=== PATIENT | female | born 1965 | race Caucasian/White ===

== ENCOUNTER → 2019-07-15 16:22 | Outpatient (CLI) | payer OTHER, SELFPAY ==
--- NOTE | ~2019-07-15 | MM_ITS ---
EXAMINATION: MM screening george BI w alhaji HISTORY: Screening mammogram TECHNIQUE: Craniocaudal and mediolateral oblique 3-D tomosynthesis images were obtained and synthetic 2-D images were generated. CAD analysis was submitted and interpreted. COMPARISON: 07/01/2018, 06/29/2017, 06/23/2016 and lateral digital screening mammogram examinations BREAST PARENCHYMAL COMPOSITION: There are scattered areas of fibroglandular density. FINDINGS: There is no evidence of suspicious mass, calcification, or architectural distortion to sugg est malignancy in either breast. There has been no suspicious interval change. IMPRESSION: 1. No mammographic evidence of malignancy. 2. Recommend routine screening mammography in one year. BI-RADS Category 1: Negative Reviewed, dictated and finalized at location A. TOLOGIC TECHNICIAN
== END ==
PROVIDERS: PCP Internal Medicine; Visit Provider Nurse Practitioner
DX: Z12.31 Encounter for screening mammogram for malignant neoplasm of breast (principal)
CPT/HCPCS: 77063; 77067

== ENCOUNTER 2020-02-29 17:14 | Outpatient (CLI) | payer OTHER, SELFPAY ==
--- NOTE | ~2020-02-29 | XR_ITS ---
EXAMINATION: XR cervical spine 4-5V EXAM DATE: 02/29/2020 17:39 INDICATION: Right-sided neck and arm pain, radiculopathy. TECHNIQUE: Cervical spine frontal, lateral, lateral swimmers, and open-mouth odontoid projections. C omparison is made to prior examination from 03/08/2008. FINDINGS: There is no evidence of acute cervical fracture. The odontoid process is intact. Pre-dens space is normal. Prevertebral soft tissue is normal. There are no soft tissue abnormalities identi fied. There is moderate disc disease at C5-6, mild disc disease at the levels above this. The verteb ral bodies are aligned in the AP dimension. Mild to moderate cervical facet and uncovertebral joint a rthropathy. IMPRESSION: 1. Mild to moderate cervical spondylosis. Reviewed, dictated and finalized at location A.
== END 2020-02-29 17:15 | disposition home or self-care (01) ==
PROVIDERS: PCP Internal Medicine; Visit Provider Physician Assistant
DX: M47.22 Other spondylosis with radiculopathy, cervical region (principal)
CPT/HCPCS: 72050

== ENCOUNTER → 2020-08-16 17:48 | Outpatient (CLI) | payer OTHER, SELFPAY ==
--- NOTE | ~2020-08-16 | MM_ITS ---
EXAMINATION: MM screening george BI w alhaji HISTORY: Screening TECHNIQUE: Craniocaudal and mediolateral oblique 3-D tomosynthesis images were obtained and synthetic 2-D images were generated. CAD analysis was submitted and interpreted. COMPARISON: Comparison to multiple prior studies sequentially, with oldest reviewed study dated 06/15. BREAST PARENCHYMAL COMPOSITION: There are scattered areas of fibroglandular density. FINDINGS: There is no evidence of suspicious mass, calcification, or architectural distortion to sugg est malignancy in either breast. There has been no suspicious interval change. IMPRESSION: 1. No mammographic evidence of malignancy. 2. Recommend routine screening mammography in one year. BI-RADS Category 1: Negative Reviewed, dictated and finalized at location A.
--- NOTE | ~2020-08-16 | DEXA_ITS ---
Bone Density Report Name: Dian Tello Age: 54 Sex: Female Ethnicity: White Date of : 1965 Indication: postmenopausal; screening for osteoporosis; height loss; asthma or emphysema; hysterectomy; Referring Provider: Elaine, Tata Study: Bone densitometry was performed. Exam Date: August 16, 2020 Accession number: [id number] Bone Density: Region BMD T-score Z-score Classification AP Spine (L1-L4) 1.267 2.0 3.2 Normal Femoral Neck (Left) 0.858 0.1 1.2 Normal Total Hip (Left) 1.060 1.0 1.7 Normal Femoral Neck (Right) 0.836 -0.1 1.0 Normal Total Hip (Right) 0.993 0.4 1.2 Normal Total Hip Mean 1.027 0.7 1.5 Normal World Health Organization criteria for BMD impression classify patients as: Normal (T-score at or above -1.0), Osteopenia (T-score between -1.0 and -2.5), or Osteoporosis (T-score at or below -2.5). 10-year Fracture Risk: FRAX not reported because: All T-scores for Spine Total, Hip Total, Femoral Neck at or above -1.0 Previous Exams: Region Exam Age BMD T-score BMD Change BMD Change Date g/cm2 vs Baseline vs Previous AP Spine(L1-L4) 08/16/2020 54 1.267 2.0 0.076 0.019 06/23/2016 50 1.248 1.8 0.057 0.043* 05/19/2012 46 1.205 1.4 0.014 0.014 03/31/2007 41 1.191 1.3 Total Hip(Left) 08/16/2020 54 1.060 1.0 0.067 0.038* 06/23/2016 50 1.022 0.7 0.029 -0.078* 05/19/2012 46 1.100 1.3 0.106 0.106 03/31/2007 41 0.993 0.4 Total Hip(Right) 08/16/2020 54 0.993 0.4 0.029 -0.032* 06/23/2016 50 1.025 0.7 0.061 -0.060* 05/19/2012 46 1.085 1.2 0.121 0.121 03/31/2007 41 0.965 0.2 *Denotes significance at 95% confidence level, LSC for AP Spine = 0.022 g/cm2, LSC for Total Hip = 0.027 g/cm2 Clinical Information Provided by Patient: Has used the following medications: Vitamin D, Calcium Has the following medical conditions: Asthma or Emphysema, Hysterectomy Patient maximum height was 64 Menopause Age: 28 Drinks caffeinated beverages Onset of menses at age 12 Number of children 2 Impression: The patient has normal bone mass. The BMD for the Total Hip(Right) decreased, changing by -0.032 since the last DXA exam. Discussion: BONE DENSITY IS ABOVE THE MINIMUM DESIRABLE LEVEL AT ALL SKELETAL SIT
== END ==
PROVIDERS: PCP Internal Medicine; Visit Provider Nurse Practitioner
DX: Z12.31 Encounter for screening mammogram for malignant neoplasm of breast (principal); Z13.820 Encounter for screening for osteoporosis; Z78.0 Asymptomatic menopausal state
CPT/HCPCS: 77063; 77067; 77080

== ENCOUNTER → 2020-09-23 00:31 | Outpatient (CLI) | payer OTHER, SELFPAY ==
[2020-09-23 21:02] LABS: SARS-CoV-2 RNA PCR Negative
== END ==
PROVIDERS: PCP Internal Medicine; Visit Provider Internal Medicine Gastroenterology
DX: Z01.812 Encounter for preprocedural laboratory examination (principal); Z20.822 Contact with and (suspected) exposure to COVID-19
CPT/HCPCS: C9803; U0003; U0005

== ENCOUNTER 2020-09-26 02:19 | Day surgery (SDC) | payer OTHER, SELFPAY ==
[2020-09-14 14:02] VITALS: BMI 36.6
[2020-09-26 07:33] VITALS: BP 142/92; PULSE 87; RESP 16; TEMP 36.4; O2SAT 100; BMI 39.7
[2020-09-26] MEDS: LACTATED RINGERS 1,000 ML 150 ML IV CONT (07:42)
--- NOTE | 2020-09-26 08:00 | WPDANESEPPF ---
Anes - Initial Pre Proc Eval Procedure: Operation Date: 09/26/20 08:30 Proposed Procedures p Screening Colonoscopy - North Rodriguez MD Date/Time: 09/26/20 08:00 Surgeon: North Rodriguez MD Pre Op Diagnosis: Neoplasm Screening Patient Data Age: 54 Gender: F Height: 5 ft 2 in Weight: 98.6 kg Last Vital Signs Temp 97.6 F 09/26/20 07:33 Pulse 87 09/26/20 07:33 Resp 16 09/26/20 07:33 BP 142/92 H 09/26/20 07:33 Pulse Ox 100 09/26/20 07:33 Allergies Allergy/AdvReac Type Severity Reaction Status Date / Time meperidine [From Demerol] Allergy Unknown unknown Verified 09/26/20 07:32 Home Medications Medication Instructions Recorded Confirmed Type ascorbic acid (vitamin C) 500 mg 500 mg PO DAILY 06/29/19 09/26/20 History capsule calcium carbonate 600 mg calcium 1,200 mg PO DAILY 06/29/19 09/14/20 History (1,500 mg) tablet cholecalciferol (vitamin D3) 25 1,000 unit PO DAILY 06/29/19 09/26/20 History mcg (1,000 unit) chewable tablet cinnamon bark 500 mg capsule 500 mg PO DAILY 06/29/19 09/26/20 History estradiol 1 mg tablet 1 mg PO DAILY 06/29/19 09/26/20 History loratadine 10 mg tablet 10 mg PO DAILY 06/29/19 09/26/20 History buspirone 15 mg tablet 15 mg PO BID PRN #60 tablet 09/24/19 09/26/20 Rx tramadol 50 mg tablet 50 mg PO BID PRN #7 tablet 03/02/20 09/26/20 Rx sodium,potassium,mag sulfates 17.5 See Rx Instructions PO .COMPLEX 07/27/20 09/26/20 Rx gram-3.13 gram-1.6 gram oral soln #354 ml fluticasone propionate 50 2 spray NASAL DAILY PRN #15.8 ml 08/11/20 09/26/20 Rx mcg/actuation nasal spray,suspension azelastine 2 spray NASAL DAILY 09/14/20 09/26/20 History omeprazole See Rx Instructions .ROUTE .COMPLEX 09/14/20 09/26/20 History albuterol sulfate 90 mcg/actuation 2 inh INHALATION Q4-6H PRN #18 gm 09/18/20 09/26/20 Rx aerosol inhaler alprazolam 0.5 mg tablet See Rx Instructions PO DIRECTED 09/23/20 09/26/20 Rx #30 tablet Patient hx anesthesia problems: none Family hx anesthesia problems: none PMFSH Past Medical History Medical History (Updated 08/01/20 @ 16:12 by Fady Narayanan MD) Anxiety disorder, unspecified Arthritis of right knee Essential (primary) hypertension Hyperglycemia Osteoarthritis of left knee Plantar fasciitis of left foot Pure hypercholesterolemia Right knee pain Vitamin D deficiency, unspecified Surgical History Surgical History History of cholecystectomy History of hysterectomy History of lumpectomy History of tonsillectomy Family History Family History Father Hypertension Mother Hypertension Family history of diabetes mellitus in first degree relative Sibling Hypertension Family history of malignant neoplasm of breast in first degree relative Patient's brother is Social History Social History Smoking packs per day: 0.25 Smoking cigarettes per day: 5.0 Years smoked: 2 Smoking pack-years: 0.50 Smoking status: Former smoker Tobacco type: cigarettes Second hand tobacco smoke exposure: No Smoking end date: 06/03/94 Alcohol intake: current Living arrangements: alone Gender identity (if verbalized by the patient): Female Spiritual care concerns: No Anes - Eval Final PreProcedure Day of Procedure 09/26/20 08:00 Patient weight: morbidly obese Heart: regular rate and rhythm Lungs: clear to auscultation Airway: Mallampati scale class II Neurological: alert and oriented Last oral intake: >/= 8 hours ASA classification: III Emergent: no Anesthetic plan: proceed Anesthesia type and monitoring: general GIVS and standard monitoring Informed Consent: The patient's anesthetic plan and its attendant risks and benefits were discussed with the patient/family/POA. Questions were solicit
--- NOTE | 2020-09-26 08:28 | PM.HPGS ---
History of Present Illness History of Present Illness Consent: Risks, benefits, and alternatives have been discussed and questions answered. Patient agrees to proceed with procedure. Chief complaint: Neoplasm Screening Narrative: Dian Tello is a 54 year old female here for first screening colonoscopy Review of Systems Constitutional: Constitutional: Denies headache(s) and Denies weakness Eyes: Eyes: Denies blurry vision ENT: Reports Normal hearing present, Denies headache(s) and Denies neck pain Cardiovascular: Cardiovascular: Denies chest pain and Denies dyspnea Respiratory: Respiratory: Denies dyspnea Gastrointestinal: Gastrointestinal: Reports no additional gastrointestinal complaints Genitourinary: Genitourinary: Denies dysuria Musculoskeletal: Musculoskeletal: Denies neck pain Integumentary/Breasts: Skin/Breast: Denies dry skin Neurologic: Reports Normal hearing present, Denies headache(s) and Denies weakness Psychiatric: Psychiatric: Denies anxiety Endocrine: Endocrine: Denies change in body appearance Hematologic/Lymphatic: Hematologic/Lymphatic: Denies easy bleeding Allergic/Immunologic: Allergic/Immunologic: Denies urticaria PMFSH Past Medical History Medical History (Updated 09/26/20 @ 08:29 by North Rodriguez MD) Anxiety disorder, unspecified Arthritis of right knee Colon cancer screening Essential (primary) hypertension Hyperglycemia Osteoarthritis of left knee Plantar fasciitis of left foot Pure hypercholesterolemia Right knee pain Vitamin D deficiency, unspecified Surgical History Surgical History History of cholecystectomy History of hysterectomy History of lumpectomy History of tonsillectomy Family History Family History Father Hypertension Mother Hypertension Family history of diabetes mellitus in first degree relative Sibling Hypertension Family history of malignant neoplasm of breast in first degree relative Patient's brother is Social History Social History Smoking packs per day: 0.25 Smoking cigarettes per day: 5.0 Years smoked: 2 Smoking pack-years: 0.50 Smoking status: Former smoker Tobacco type: cigarettes Second hand tobacco smoke exposure: No Smoking end date: 06/03/94 Alcohol intake: current Living arrangements: alone Gender identity (if verbalized by the patient): Female Spiritual care concerns: No Meds Home Medications and Allergies Home Medications Medication Instructions Recorded Confirmed Type ascorbic acid (vitamin C) 500 mg 500 mg PO DAILY 06/29/19 09/26/20 History capsule calcium carbonate 600 mg calcium 1,200 mg PO DAILY 06/29/19 09/14/20 History (1,500 mg) tablet cholecalciferol (vitamin D3) 25 1,000 unit PO DAILY 06/29/19 09/26/20 History mcg (1,000 unit) chewable tablet cinnamon bark 500 mg capsule 500 mg PO DAILY 06/29/19 09/26/20 History estradiol 1 mg tablet 1 mg PO DAILY 06/29/19 09/26/20 History loratadine 10 mg tablet 10 mg PO DAILY 06/29/19 09/26/20 History buspirone 15 mg tablet 15 mg PO BID PRN #60 tablet 09/24/19 09/26/20 Rx tramadol 50 mg tablet 50 mg PO BID PRN #7 tablet 03/02/20 09/26/20 Rx sodium,potassium,mag sulfates 17.5 See Rx Instructions PO .COMPLEX 07/27/20 09/26/20 Rx gram-3.13 gram-1.6 gram oral soln #354 ml fluticasone propionate 50 2 spray NASAL DAILY PRN #15.8 ml 08/11/20 09/26/20 Rx mcg/actuation nasal spray,suspension azelastine 2 spray NASAL DAILY 09/14/20 09/26/20 History omeprazole See Rx Instructions .ROUTE .COMPLEX 09/14/20 09/26/20 History albuterol sulfate 90 mcg/actuation 2 inh INHALATION Q4-6H PRN #18 gm 09/18/20 09/26/20 Rx aerosol inhaler alprazolam 0.5 mg tablet See Rx Instructions PO DIRECTED 09/23/20 09/26/20 Rx #30 tablet Allergi
[2020-09-26 08:53] VITALS: BP 110/54; PULSE 67; RESP 16; O2SAT 100
[2020-09-26 09:03] VITALS: BP 112/57; PULSE 64; RESP 18; O2SAT 100
[2020-09-26 09:13] VITALS: BP 120/62; PULSE 76; RESP 18; O2SAT 100
== END 2020-09-26 09:30 | disposition home or self-care (01) ==
PROVIDERS: PCP Internal Medicine; Visit Provider Internal Medicine Gastroenterology
PROC: 0DJD8ZZ Inspection of Lower Intestinal Tract, Via Natural or Artificial Opening Endoscopic (ICD-10-PCS; CPT 45378; principal; 2020-09-26 08:30)
DX: Z12.11 Encounter for screening for malignant neoplasm of colon (principal); D12.5 Benign neoplasm of sigmoid colon; I10 Essential (primary) hypertension; M17.0 Bilateral primary osteoarthritis of knee; E78.00 Pure hypercholesterolemia, unspecified; E55.9 Vitamin D deficiency, unspecified; K64.8 Other hemorrhoids; M72.2 Plantar fascial fibromatosis; F41.9 Anxiety disorder, unspecified; Z90.49 Acquired absence of other specified parts of digestive tract; Z90.710 Acquired absence of both cervix and uterus; Z87.891 Personal history of nicotine dependence
CPT/HCPCS: 45385; 88305; C9803; J2704; J7120; U0003; U0005

== ENCOUNTER → 2021-02-28 03:06 | Outpatient (CLI) | payer OTHER, SELFPAY ==
[2021-03-01 01:26] LABS: SARS-CoV-2 RNA PCR Positive
== END ==
PROVIDERS: PCP Internal Medicine; Visit Provider Internal Medicine
DX: U07.1 COVID-19 (principal)
CPT/HCPCS: C9803; U0003; U0005

== ENCOUNTER 2021-03-01 10:33 | Outpatient (RCR) | payer OTHER, SELFPAY ==
[2021-03-01] MEDS: diphenhydrAMINE HCl CAP 25 MG CAPSULE PO (13:31)
[2021-03-01] MEDS: ACETAMINOPHEN 325 MG TABLET 650 MG PO (13:31)
[2021-03-01] MEDS: FAMOTIDINE 20 MG TABLET PO (13:31)
[2021-03-01 13:33] VITALS: BP 122/72; PULSE 103; RESP 16; TEMP 36.7; O2SAT 96
[2021-03-01 15:05] VITALS: BP 113/57
--- NOTE | 2021-03-02 14:29 | PC.NURSE ---
Patient stated she has started to feel better this afternoon. She was able to eat this afternoon.
== END 2021-03-01 16:30 | disposition home or self-care (01) ==
LOC: AMCINF 10:33
PROVIDERS: PCP Internal Medicine; Referring Provider Internal Medicine; Visit Provider Internal Medicine Hematology & Oncology
DX: Z23 Encounter for immunization (principal); U07.1 COVID-19
CPT/HCPCS: A9270; J7050; M0243; Q0244

== ENCOUNTER → 2021-08-21 16:13 | Outpatient (CLI) | payer BC, SELFPAY ==
--- NOTE | ~2021-08-21 | MM_ITS ---
EXAMINATION: MM screening george BI w alhaji HISTORY: Screening mammogram TECHNIQUE: Craniocaudal and mediolateral oblique 3-D tomosynthesis images were obtained and synthetic 2-D images were generated. CAD analysis was submitted and interpreted. COMPARISON: 08/16/2020, 07/15/2019, 07/01/2018 bilateral screening mammogram examinations BREAST PARENCHYMAL COMPOSITION: There are scattered areas of fibroglandular density. FINDINGS: There is no evidence of suspicious mass, calcification, or architectural distortion to sugg est malignancy in either breast. There has been no suspicious interval change. IMPRESSION: 1. No mammographic evidence of malignancy. 2. Recommend routine screening mammography in one year. BI-RADS Category 1: Negative Reviewed, dictated and finalized at location A.
== END ==
PROVIDERS: Visit Provider Nurse Practitioner
DX: Z12.31 Encounter for screening mammogram for malignant neoplasm of breast (principal)
CPT/HCPCS: 77063; 77067

== ENCOUNTER → 2022-09-08 11:05 | Outpatient (CLI) | payer BC, SELFPAY ==
--- NOTE | ~2022-09-08 | MM_ITS ---
EXAMINATION: MM screening george BI w alhaji HISTORY: Screening mammogram TECHNIQUE: Craniocaudal and mediolateral oblique 3-D tomosynthesis images were obtained and synthetic 2-D images were generated. CAD analysis was submitted and interpreted. COMPARISON: 08/21/2021, 08/16/2020, 07/15/2019 bilateral screening mammogram examinations BREAST PARENCHYMAL COMPOSITION: There are scattered areas of fibroglandular density. FINDINGS: Subtle grouped microcalcifications in the posterior lower inner right breast; diagnostic ri ght mammogram with magnification views is recommended. New 2.5 mm ill-defined opacity in the posterior mid to lower left breast on MLO view, in the mid to l ower outer left breast. Diagnostic left mammogram and left breast ultrasound examination are recommen ded. IMPRESSION: 1. Suspicious posterior lower inner quadrant right microcalcifications and suspicious ill-defined carolin roximately 2.5 mm opacity of left mid to lower outer breast 2. Bilateral diagnostic mammography and breast ultrasound examination are recommended BI-RADS Category 0: Incomplete: Needs additional imaging evaluation. Reviewed, dictated and finalized at location A. IMPRESSION: 1. Suspicious posterior lower inner quadrant right microcalcifications and susp icious ill-defined approximately 2.5 mm opacity of left mid to lower outer [address] 2. Bilateral diagnostic mammography and breast ultrasound examination are recom mended BI-RADS Category 0: Incomplete: Needs additional imaging evaluation.
== END ==
PROVIDERS: PCP Internal Medicine; Visit Provider Obstetrics & Gynecology Gynecology
DX: Z12.31 Encounter for screening mammogram for malignant neoplasm of breast (principal); R92.8 Other abnormal and inconclusive findings on diagnostic imaging of breast
CPT/HCPCS: 77063; 77067

== ENCOUNTER → 2022-10-03 07:57 | Outpatient (CLI) | payer BC, SELFPAY ==
--- NOTE | ~2022-10-03 | MM_ITS ---
EXAMINATION: MM diagnostic george BI w alhaji HISTORY: Right breast calcifications and left breast mass on screening mammogram TECHNIQUE: Additional 3-D tomosynthesis images of the left breast were performed and synthetic 2-D im ages were generated. Magnification views of the right breast are also obtained. CAD analysis was subm itted and interpreted. COMPARISON: 09/08/2022, 08/21/2021, 08/16/2020 FINDINGS: With spot compression, a 3 mm mass of the left breast has a stable appearance when compared to prior mammograms. There are grouped calcifications in the posterior third of the inner right madeline st at the 3:00 location 10 cm from the nipple small and too few in number for definitive morphologic characterization. IMPRESSION: 1. Probably benign right breast calcifications. 2. Recommend 6 month follow-up right diagnostic mammogram. BI-RADS category 3, probably benign findings. Reviewed, dictated and finalized at location A.
== END ==
PROVIDERS: PCP Internal Medicine; Visit Provider Obstetrics & Gynecology Gynecology
DX: R92.8 Other abnormal and inconclusive findings on diagnostic imaging of breast (principal)
CPT/HCPCS: 77062; 77066; G0279

== ENCOUNTER → 2023-04-05 14:14 | Outpatient (CLI) | payer BC, SELFPAY ==
--- NOTE | ~2023-04-05 | MM_ITS ---
EXAMINATION: MM diagnostic george RT w alhaji HISTORY: Six-month follow-up for probably benign right breast calcifications TECHNIQUE: Craniocaudal, mediolateral, and mediolateral oblique 3-D tomosynthesis images of the right breast were performed and synthetic 2-D images were generated. CAD analysis was submitted and interp reted. COMPARISON: 10/03/2022, 09/08/2022, 08/21/2021, 08/16/2020 BREAST PARENCHYMAL COMPOSITION: There are scattered areas of fibroglandular density. FINDINGS: Again seen are grouped calcifications in the posterior third of the inner right breast at t he 3:00 location, 10 cm from the nipple. The calcifications are stable and again are too few in numbe r for definitive morphologic characterization. No associated mass is identified. There is no architec tural distortion. IMPRESSION: 1. Stable, probably benign right breast calcifications. 2. Recommend 6 month follow-up bilateral diagnostic mammogram. BI-RADS category 3, probably benign findings. Reviewed, dictated and finalized at location A.
== END ==
PROVIDERS: PCP Internal Medicine; Visit Provider Obstetrics & Gynecology Gynecology
DX: N64.59 Other signs and symptoms in breast (principal); R92.8 Other abnormal and inconclusive findings on diagnostic imaging of breast
CPT/HCPCS: 77061; 77065; G0279

== ENCOUNTER 2023-10-04 14:24 | Outpatient (CLI) | payer BC, SELFPAY ==
--- NOTE | ~2023-10-04 | MM_ITS ---
EXAMINATION: MM diagnostic george BI w alhaji HISTORY: Follow-up of previously reported stable probably benign right breast calcifications, posteri or third of the inner right breast at 3:00 TECHNIQUE: ML, MLO and CC 3-D tomosynthesis images of both breasts were performed and synthetic 2-D i mages were generated. ML and CC right magnification views. CAD analysis was submitted and interpreted . COMPARISON: 3diagnostic right mammogram 10/03/2022 and bilateral diagnostic mammogram 09/08/2022 bilateral screening mammogram 08/21/2021 bilateral screening mammogram BREAST PARENCHYMAL COMPOSITION: The breasts are almost entirely fatty. FINDINGS: There are occasional bilateral benign calcifications. No suspicious malignant features are noted in many of the calcifications. No suspicious mass or architectural distortion, malignant calcification, skin thickening or retracti on or significant new or developing density is detected. IMPRESSION: 1. Benign finding 2. Routine annual mammographic screening is recommended. BI-RADS Category 2: Benign finding(s). Reviewed, dictated and finalized at location A.
== END 2023-10-04 14:25 ==
LOC: MICIMG 14:25
PROVIDERS: PCP Obstetrics & Gynecology Gynecology; Visit Provider Obstetrics & Gynecology Gynecology
DX: R92.8 Other abnormal and inconclusive findings on diagnostic imaging of breast (principal)
CPT/HCPCS: 77062; 77066; G0279

== ENCOUNTER 2024-07-10 13:11 | Emergency (ER) | payer BC, SELFPAY ==
--- NOTE | ~2024-07-10 | XR_ITS ---
EXAMINATION: XR chest 2V DATE: 07/10/2024 15:02 INDICATION: Productive cough. TECHNIQUE: Frontal and lateral views of the chest were obtained. COMPARISON: Chest 2 views 08/22/2005 FINDINGS: There is no pneumonia, pleural effusion, or pneumothorax. The heart size is normal. Surgica l clips in the right upper quadrant are likely from cholecystectomy. There is mild chronic anterior w edging of multiple thoracic vertebral bodies. IMPRESSION: 1. No acute cardiopulmonary disease. Reviewed, dictated and finalized at location A. N GRADER
[2024-07-10 13:23] VITALS: BP 184/82; PULSE 89; RESP 16; TEMP 36.8; O2SAT 100
--- NOTE | 2024-07-10 14:39 | ED_ITS ---
HPI - URI/Sore Throat General Chief Complaint: Upper Respiratory Infection Stated Complaint: cough,hard to catch breath,asthmatic Time Seen by Provider: 07/10/24 14:40 Source: patient, RN notes reviewed and old records reviewed Mode of arrival: ambulatory Limitations: no limitations History of Present Illness HPI Narrative: Patient, with asthma, presents with complaints of cough. She reports that cough began last week. At the onset of her illness she felt as though she may have had a fever. She reports that this resolved several days ago. She is concerned because she is using her albuterol much more often than usual. Says she typically uses it once daily, has been using it up to 3 times a day. She reports this gives her moderate relief. She does report that she has been wheezing more and feeling like she is about to have an asthma attack. She is not in any distress at this time, including respiratory distress Related Data Home Medications ?Medication ?Instructions ?Recorded ?Confirmed ?Last Taken ?Type cholecalciferol (vitamin D3) 25 1,000 unit PO DAILY 06/29/19 07/10/24 09/25/20 History mcg (1,000 unit) chewable tablet estradiol 1 mg tablet 1 mg PO DAILY 06/29/19 07/10/24 09/25/20 History loratadine 10 mg tablet (Claritin) 10 mg PO DAILY 06/29/19 07/10/24 09/25/20 History docusate sodium 100 mg capsule 100 mg PO DAILY 07/04/21 07/10/24 Unknown History (Stool Softener) turmeric root extract 500 mg 500 mg PO DAILY 07/04/21 07/10/24 Unknown History capsule biotin 10,000 mcg chewable tablet 10,000 mcg PO DAILY 07/10/22 07/10/24 Unknown History (Hair, Skin and Nails (biotin)) cranberry 500 mg capsule 500 mg PO BID 07/10/22 07/10/24 Unknown History ascorbic acid (vitamin C) 500 mg 1,000 mg PO DAILY 07/15/23 07/10/24 Unknown History capsule black elder crawford PO 07/15/23 01/17/24 Unknown History cinnamon bark 500 mg capsule 1,200 mg PO DAILY 07/15/23 07/10/24 Unknown History (Cinnamon) garlic 1,000 mg capsule 1,000 mg PO DAILY 07/15/23 07/10/24 Unknown History magnesium 250 mg tablet 250 mg PO DAILY 07/15/23 07/10/24 Unknown History mecobalamin (vitamin B12) 1,000 1,000 mcg PO DAILY 07/15/23 07/10/24 Unknown History mcg chewable tablet apple cider vinegar 500 mg tablet 500 mg PO DAILY 01/17/24 07/10/24 Unknown History Allergies Allergy/AdvReac Type Severity Reaction Status Date / Time meperidine (From Demerol) Allergy Unknown unknown Verified 07/10/24 14:41 Review of Systems Review of Systems: All systems reviewed & are unremarkable except as noted in HPI and below Constitutional: Constitutional: Reports as per HPI and Reports no additional constitutional complaints ENT: Reports system reviewed and no additional complaints, except as document ed Cardiovascular: Cardiovascular: Reports no additional cardiovascular complaints Respiratory: Respiratory: Reports no additional respiratory complaints, Reports chest congestion, Reports cough and Reports wheezing Gastrointestinal: Gastrointestinal: Reports no additional gastrointestinal complaints PMFSH Past Medical History Medical History Colon cancer screening Arthritis of right knee Right knee pain Plantar fasciitis of left foot Osteoarthritis of left knee Anxiety disorder, unspecified Essential (primary) hypertension Hyperglycemia Pure hypercholesterolemia Vitamin D deficiency, unspecified Surgical History Surgical History History of lumpectomy History of cholecystectomy History of tonsillectomy History of hysterectomy Family History Family History Father Hypertension Mother Hypertension Family history of diabetes mellitus in first degree relative Sibling Hypertension Family history of malignant neoplasm of breast in first degree relative Patient's brother is Social History Social History Smoking packs per day: 0.5 Smoking cigarettes per day: 10.0 Years smoked: 1 Smoking pack-years: 0.50 Smoking status: Former smoker Tobacco type: cigarettes Second hand tobacco smoke exposure: No Smoking end date: 06/03/94 Alcohol intake: current Lack of Transportation: No Lack of Food: Never True Current Housing: I Have Housing Concerned About Future Housing: No Difficulty Paying Gas/Electric Bills: No Difficulty Paying for Meds: No Currently Unemployed: No Education: High School Diploma/GED Difficulty w/ Childcare or Family Care: No Living arrangements: alone Gender identity (if verbalized by the patient): Female Spiritual care concerns: No Comments At the time of my signature, I reviewed and agree with the nursing past medical, surgical, social, and family history. There is no relevant family history pertinent to the patient complaint. Exam Const: General: cooperative, no acute distress, alert and awake Orientation/consciousness: oriented to person, oriented to place and oriented to time HENMT: Head: normal to inspection Ears: TM's normal bilaterally Mouth: Yes moist mucous membranes Throat: posterior oropharynx normal Resp: Effort & Inspection: normal respiratory effort and able to speak in complete sentences Auscultation: no crackles, no rales, no rhonchi, wheezes scattered wheezes and diminished lung sounds bilateral in the lower lung berry Cardio: Palpation: normal PMI Rate: regular rate Rhythm: regular rhythm Heart sounds: S1 normal heart sound present and S2 normal heart sound present Neuro: General: oriented to person, oriented to place and oriented to time Cranial nerves: Yes CN's II-XII intact bilaterally Psych: Appearance: grossly normal Thought process: Normal thought process present Insight: Good insight present (Psych) Judgement: Good judgement present (Psych) Course Course Level of Care: Express Care Visit Reevaluation(s) Reevaluation #1: Lungs sound much clearer after neb treatment Date: 07/10/24 Time: 15:14 Vital Signs Vital signs: Vital Signs Temperature 98.2 F 07/10/24 13:23 Pulse Rate 89 07/10/24 13:23 Respiratory Rate 16 07/10/24 13:23 Blood Pressure 184/82 H 07/10/24 13:23 Pulse Oximetry 100 07/10/24 13:23 Oxygen Delivery Room Air 07/10/24 13:23 Temperature 98.2 F 07/10/24 13:23 Pulse Rate 89 07/10/24 13:23 Respiratory Rate 16 07/10/24 13:23 Blood Pressure 184/82 H 07/10/24 13:23 Pulse Oximetry 100 07/10/24 13:23 Oxygen Delivery Room Air 07/10/24 13:23 Reviewed MDM - URI/Sore Throat MDM Narrative Medical decision making narrative: Chest x-ray without acute finding, patient much improved after neb treatment. Elevated blood pressure discussed. Emergency department precautions discussed. Discharge instructions reviewed with patient, as well as provided in writing per nursing staff. The instructions also include specific and strict return/GO TO THE ER as well as f/u information. All questions have been answered, and the patient deny any further questions with discharge and discharge plan. Some parts of this dictation were generated by voice recognition software and may contain typographical and/or grammatical inaccuracies. Differential Diagnosis Differential diagnosis: Likely upper respiratory infection, otitis media and viral infection Medical Records Attestation: I reviewed the patient's medical records. Lab Data Attestation: I reviewed the patient's lab results. Imaging Data Attestation: I personally reviewed and interpreted this imaging study as follows: My impression: No acute findings Radiologist's impression: [facility] [address] [place] [address] XRay Report Signed Patient: Dian Tello : 1965 MR#: [id number] Age: 58 Acct:[id number] Loc: [facility] ADM Date: 07/10/24Attending Dr: Ordering Physician: Jeni López FNP Date of Service: 07/10/24 Procedure(s): XR chest 2V Accession Number(s): [id number] cc: Jeni López FNP; Rizwan Arthur DO~ EXAMINATION: XR chest 2V DATE: 07/10/2024 15:02 INDICATION: Productive cough. TECHNIQUE: Frontal and lateral views of the chest were obtained. COMPARISON: Chest 2 views 08/22/2005 FINDINGS: There is no pneumonia, pleural effusion, or pneumothorax. The heart size is normal. Surgical clips in the right upper quadrant are likely from cholecystectomy. There is mild chronic anterior wedging of multiple thoracic vertebral bodies. IMPRESSION: 1. No acute cardiopulmonary disease. Reviewed, dictated and finalized at location A. GER FORMS Please be advised this is a medical document. It is intended for [id number] communication. It is written in medical language and may contain unfamiliar abbreviations or verbiage. Medical documents are intended to carry relevant information, facts as evident, and the clinical opinion of the practitioner at the time of the encounter. This report may have been done utilizing a voice recognition system. Attempts have been made to correct errors. However, there may be uncorrected grammatical, spelling, and recognition errors present. The file time of this note does not necessarily represent the time of service. Dictated By: José Martinez MD 07/10/24 1506 Signed By: <Electronically signed by José Martinez MD in OV> Discharge Plan Discharge Clinical Impression: Asthma Qualifiers: Asthma severity: unspecified severity Asthma persistence: unspecified Asthma complication type: with acute exacerbation Qualified Code(s): J45.901 - Unspecified asthma with (acute) exacerbation Patient Disposition: Home, Self-Care Condition: Stable Instructions: Antibiotic Form, Asthma (ED) Additional Instructions: Take medications as prescribed. Follow-up with primary care provider. Emergency department for new or worse symptoms Patient Language: Czech Prescriptions: New prednisone 50 mg tablet 50 mg PO DAILY Qty: 5 0RF No Action docusate sodium [Stool Softener] 100 mg capsule 100 mg PO DAILY turmeric root extract 500 mg capsule 500 mg PO DAILY apple cider vinegar 500 mg tablet PO Rx Instructions: 450mg cranberry 500 mg capsule 500 mg PO BID Rx Instructions: administer with meals Hair, Skin and Nails (biotin) 10,000 mcg tablet,chewable PO cholecalciferol (vitamin D3) 25 mcg (1,000 unit) tablet,chewable 1,000 unit PO DAILY estradiol 1 mg tablet 1 mg PO DAILY Rx Instructions: off 1 week; repeat cycle loratadine [Claritin] 10 mg tablet 10 mg PO DAILY ascorbic acid (vitamin C) 500 mg capsule 1,000 mg PO DAILY cinnamon bark [Cinnamon] 500 mg capsule 1,200 mg PO DAILY garlic 1,000 mg capsule 1,000 mg PO DAILY magnesium 250 mg tablet 250 mg PO DAILY mecobalamin (vitamin B12) 1,000 mcg tablet,chewable 1,000 mcg PO DAILY black elder crawford PO Rx Instructions: 50mg daily levalbuterol tartrate [Xopenex HFA] 45 mcg/actuation HFA aerosol inhaler 2 inh inhalation Q4-6H PRN (Reason: shortness of breath or wheezing) Qty: 15 3RF Rx Instructions: Do NOT take with albuterol azelastine 137 mcg (0.1 %) aerosol,spray See Rx Instructions .ROUTE .COMPLEX Qty: 30 6RF Dose Instruction: USE 2 SPRAYS IN EACH NOSTRIL EVERY 12 HOURS Rx Instructions: USE 2 SPRAYS IN EACH NOSTRIL EVERY 12 HOURS buspirone 7.5 mg tablet 7.5 mg PO BID PRN (Reason: anxiety) Qty: 180 2RF fluticasone propionate 50 mcg/actuation spray,suspension See Rx Instructions .ROUTE .COMPLEX Qty: 48 2RF Dose Instruction: 2 SPRAY INTRANASALLY DAILY NEEDED FOR NASAL CONGESTION ADMINISTER INTO EACH NOSTRIL Rx Instructions: 2 SPRAY INTRANASALLY DAILY NEEDED FOR NASAL CONGESTION ADMINISTER INTO EACH NOSTRIL omeprazole 40 mg capsule,delayed release(DR/EC) See Rx Instructions .ROUTE .COMPLEX Qty: 90 2RF Rx Instructions: Take 1 capsule daily. alprazolam [Xanax] 0.5 mg tablet 0.5 mg PO QHS Qty: 30 1RF Follow-up/Referrals: Rizwan Arthur DO [Primary Care Provider] - 2 Weeks Time of Disposition: 15:18
[2024-07-10] MEDS: IPRATROPIUM 0.5 MG/ALBUTEROL SULFATE 2.5 MG AMPUL.NEB 3 ML INHALATION (15:01)
[2024-07-10 15:26] VITALS: BP 162/82
== END 2024-07-10 15:26 | disposition home or self-care (01) ==
PROVIDERS: Emergency Provider Nurse Practitioner Family; PCP Internal Medicine
DX: J45.901 Unspecified asthma with (acute) exacerbation (principal); Z87.891 Personal history of nicotine dependence; I10 Essential (primary) hypertension; E78.00 Pure hypercholesterolemia, unspecified; M17.0 Bilateral primary osteoarthritis of knee; F41.9 Anxiety disorder, unspecified
CPT/HCPCS: 71046; 94640; 99213; G0463

== ENCOUNTER 2024-10-06 15:55 | Outpatient (CLI) | payer BC, SELFPAY ==
--- NOTE | ~2024-10-06 | MM_ITS ---
EXAMINATION: MM screening [facility] BI w alhaji HISTORY: Screening TECHNIQUE: Craniocaudal and mediolateral oblique 3-D tomosynthesis images were obtained and synthetic 2-D images were generated. CAD analysis was submitted and interpreted. COMPARISON: Comparison to multiple prior studies sequentially, with oldest reviewed study dated 08/16. BREAST PARENCHYMAL COMPOSITION: Not Dense: The breasts are almost entirely fatty. FINDINGS: There is no evidence of suspicious mass, calcification, or architectural distortion to sugg est malignancy in either breast. There has been no suspicious interval change. IMPRESSION: 1. No mammographic evidence of malignancy. 2. Recommend routine screening mammography in one year. BI-RADS Category 1: Negative Reviewed, dictated and finalized at location A.
== END 2024-10-06 15:56 | disposition home or self-care (01) ==
LOC: MICIMG 15:55
PROVIDERS: PCP Nurse Practitioner; Visit Provider Nurse Practitioner
DX: Z12.31 Encounter for screening mammogram for malignant neoplasm of breast (principal)
CPT/HCPCS: 77063; 77067

== ENCOUNTER 2025-04-01 15:42 | Outpatient (CLI) | payer BC, SELFPAY ==
--- NOTE | ~2025-04-01 | XR_ITS ---
EXAMINATION: XR knee RT 3V, 04/01/2025 15:58 CDT HISTORY: M25.561 - Pain in right knee COMPARISON: No comparisons available. Findings: No acute fracture or malalignment. Moderate tricompartmental degenerative changes Soft tissues unremarkable. Impression: No acute fracture or malalignment. Reviewed, dictated and finalized at location P. Impression: No acute fracture or malalignment.
== END 2025-04-01 15:43 | disposition home or self-care (01) ==
PROVIDERS: PCP Nurse Practitioner; Visit Provider Nurse Practitioner
DX: M25.561 Pain in right knee (principal)
CPT/HCPCS: 73562